=== PATIENT | female | born 1990 | race Hispanic/Latino ===

== ENCOUNTER → 2024-06-14 | Outpatient (REF) | payer OTHER | LOC: US 08:15 | PROVIDERS: ATTEND Nurse Practitioner Family | DX: R10.9 Unspecified abdominal pain (principal) | CPT/HCPCS: 76700; 76856 ==

== ENCOUNTER → 2024-07-07 | Day surgery (SDC) | payer OTHER ==
[~2024-07-07] MED LIST: FENTANYL CITRATE/PF 100MCG/2 ML INJ ONE; LIDOCAINE HCL 2% LOCAL INJ 5 ML SDV VIAL INJ ONE; MIDAZOLAM HCL 2 MG/2 ML VIAL ONE; MULTI-VITAMIN1 EACH PO; PROPOFOL IV EMULSION 10 MG/ML 20 ML VIAL ONE; VITAMIN D PO
[2024-07-07 08:05] VITALS: TEMP 97.1
[2024-07-07] MEDS: LACTATED RINGER'S 1,000 ML ONE (08:24)
[2024-07-07 08:35] VITALS: BP 126/70; PULSE 75; RESP 16; O2SAT 97
== END | disposition home or self-care (01) ==
LOC: OR 05:07
PROVIDERS: ATTEND Internal Medicine Gastroenterology
DX: K62.5 Hemorrhage of anus and rectum (principal); K29.70 Gastritis, unspecified, without bleeding; K21.9 Gastro-esophageal reflux disease without esophagitis; K31.89 Other diseases of stomach and duodenum; K44.9 Diaphragmatic hernia without obstruction or gangrene; K59.00 Constipation, unspecified; K64.8 Other hemorrhoids; E73.9 Lactose intolerance, unspecified; R03.0 Elevated blood-pressure reading, without diagnosis of hypertension; E66.9 Obesity, unspecified; Z68.31 Body mass index [BMI] 31.0-31.9, adult; Z80.0 Family history of malignant neoplasm of digestive organs
CPT/HCPCS: 43239; 45378; 81025; J2003; J2250; J2704; J3010; J7121